=== PATIENT | male | born 1980 | race Caucasian/White ===

== ENCOUNTER → 2018-06-03 07:03 | Outpatient (CLI) | payer SELFPAY ==
--- NOTE | 2018-06-03 07:15 | MRI_ITS ---
STUDY: MRI LUMBAR SPINE WITHOUT CONTRAST REASON FOR EXAM: Male, 37 years old. Back pain and bilateral leg pain TECHNIQUE: Standardized fat and water weighted pulse sequences were obtained in the sagittal and axial planes. COMPARISON: None FINDINGS: T12-L1: Normal endplates. Normal disc height, hydration and morphology. Normal bilateral facet joints. Normal central canal and bilateral lateral recesses. Normal bilateral intervertebral neural foramina. There is straightening of the normal lumbar lordosis. There is no substantial scoliosis. Normal conus medullaris that terminates at the L1-L2 disc space. L1-2: Normal endplates. Normal disc height, hydration and morphology. Normal bilateral facet joints. Normal central canal and bilateral lateral recesses. Normal bilateral intervertebral neural foramina. L2-3: Normal endplates. Normal disc height, hydration and morphology. Normal bilateral facet joints. Normal central canal and bilateral lateral recesses. Normal bilateral intervertebral neural foramina. L3-4: Normal endplates. There is mild annular disc bulge and focal central disc bulge with mild inferior migration. Mild ligamentum flavum hypertrophy. Mild bilateral facet arthrosis, right greater than left. Mild ventral thecal sac narrowing. No foraminal narrowing. L4-5: Normal endplates. There is annular disc bulge with subligamentous extrusion and left paracentral extrusion w superior and inferior migration. There is posterior annular tear. There is ventral thecal sac narrowing and impingement on the descending nerve roots. Mild bilateral foraminal narrowing. L5-S1: Normal endplates. There is moderate intervertebral disc space narrowing and small posterior disc osteophyte complex. There is annular disc bulge. No central canal narrowing. Mild bilateral foraminal narrowing.. Normal visualized sacral ala. Normal visualized paraspinous soft tissue structures. MRI/Spine Lumbar (Routine) IMPRESSION: Degenerative changes are most prominent at L3-L4, L4-L5 and L5-S1 as described above. There is straightening of the lumbar lordosis. Electronically Signed: Tyshawn Haider, at 13:37 EST Tel , Service support ,
== END ==
PROVIDERS: Family Provider Family Medicine; PCP Family Medicine
DX: M99.03 Segmental and somatic dysfunction of lumbar region (principal); M51.37 Other intervertebral disc degeneration, lumbosacral region
CPT/HCPCS: 72148